=== PATIENT | male | born 1955 ===

== ENCOUNTER → 2024-11-22 | Day surgery (SDC) | payer OTHER ==
[2024-11-20 14:10] LABS: Absolute Basophils 0.1 K/uL (0-0.5); Absolute Eosinophils 0.4 K/uL (0-0.5); Absolute Lymphocytes (CBC) 3.9 K/uL (0.7-4.9); Absolute Monocytes 0.8 K/uL (0.1-1.3); Eosinophils % 4.2 % (0-4.4); Hematocrit 41.6 % (39.6-49.0); Hemoglobin 14.2 g/dL (13.6-17.9); Lymphocytes % 42.3 % (15.3-44.8); MCH 34.1 pg (27.0-35.0); MCHC 34.2 g/dL (32.0-36.0); MCV 99.7 fL (80-100); MPV 9.3 fL (7.6-11.3); Monocytes % 8.3 % (3.3-12.3); Neutrophils % 44.2 % (41.7-73.7); Nucleated Red Blood Cells % 0.1 % (0-0); Platelets 257 thou/uL (152-406); RBC Red Blood Cell Count 4.17 M/uL (4.33-5.43); Red Cell Distribution Width 13.9 % (12.1-15.2)
[~2024-11-22] MED LIST: LIDOCAINE 1% MPF 5 ML VIAL ONE; propofoL 200 MG/20 ML VIAL IV ONE
[2024-11-22] MEDS: Ringers Lactate 1,000 ML IV ONE (07:20)
[2024-11-22] MEDS: OXYMETAZOLINE HCL 0.05% 15ML NAS ONE (07:39)
--- NOTE | 2024-11-22 08:42 | P.OP ---
Date of Service: 11/22/24 Surgeon: Dr. Pina Ramirez Educational Psychology Teacher: None Procedure: Evaluation of sleep disordered breathing by examination of upper airway using an endoscope; CPT: 35966 Preoperative diagnosis: Moderate or severe obstructive sleep apnea with positive airway pressure intolerance. Postoperative diagnosis: Moderate or severe sleep apnea with positive pressure airway intolerance. Anesthesia: IV sedation Estimated blood loss: None Complications: None Brief clinical history: This is a 69-year-old patient with a history of moderate to severe symptomatic obstructive sleep apnea with an AHI of 43 and a minimum oxygenation of 74% with a total of 62 minutes below 90% who is intolerant and unable to achieve benefit with positive pressure therapy. He is frequently a side sleeper which results in difficulty tolerating and continuing CPAP throughout the night patient's compliance report between July 10 and September 17, 2024 demonstrated usage for 90% of the 70 days but greater than 4 hours only 50% of the days. They present today for drug-induced sleep endoscopy to better characterize the location and pattern of obstruction and to predict appropriate medical and/or surgical options moving forward Procedure findings: There was no evidence of complete concentric palatal obstruction and they appear to be a candidate anatomically for hypoglossal nerve stimulation therapy. Description of procedure: The patient was brought to the endoscopy suite and was administered anesthesia via standard drug-induced sleep endoscopy protocol. The patient was administered propofol while under monitoring including oxygen concentration, CO2, blood pressure, and pulse under conditions felt to mimic sleep. The patient was nonresponsive to verbal commands but maintained spontaneous respiration. Patient was noted to have observed apnea and snoring consistent with diagnosis of obstructive sleep apnea. Under these conditions, the flexible endoscope was inserted into both sides of the nose and advanced to the nasopharynx, and oral pharynx with observation of the larynx. The patient's nasal mucosa was mildly edematous and he was noted to have S shaped bilateral septal deviation. The mucosa of the nasopharynx was unremarkable. The patient was noted to have prolonged episodes of apnea. With spontaneous breathing, the patient was noted to have primarily mouth breathing with an open mouth position and collapse of the tongue into the oropharynx. With advancement of the scope into the oral pharynx, visible obstruction with the base of tongue was noted. The patient desaturated to about 81% at which time we administered jaw thrust in order to improve the obstruction. With spontaneous breathing, the patient's oxygen saturations returned to normal on room air. We continue to observe both the oropharynx and nasopharynx throughout the procedure. During portions of the procedure he was noted to have audible snoring with visible flutter of the palate, with anterior posterior collapse with the soft palate lying against the nasal/oral pharyngeal wall. There was no evidence of complete concentric palatal obstruction. There was no evidence of significant lateral movement in the level of the palate. We continue to observe during early portions of emergence to ensure adequate visualization through various levels of sedation. At the conclusion of the exam, the scope was withdrawn. There was no evidence of any injury to the nasal mucosa and no evidence of active epistaxis. The patient was monitored with spontaneous ventilation until the patient's level of alertness increased and they responded to verbal commands and demonstrated active and intact control of their airway. The patient was then transferred to appropriate recovery prior to discharge. In summary, there was no evidence of complete concentric palatal obstruction and they appeared to be a candidate anatomically for hypoglossal nerve stimulation. I was present for and personally performed the entire procedure.
[2024-11-22 09:17] VITALS: O2SAT 100
[2024-11-22 09:18] VITALS: BP 109/65; TEMP 97.8
== END ==
LOC: OR 06:50
PROVIDERS: ATTEND Otolaryngology
PROC: 0CJY8ZZ Inspection of Mouth and Throat, Via Natural or Artificial Opening Endoscopic (ICD-10-PCS; principal; 2024-11-22 08:00)
DX: G47.33 Obstructive sleep apnea (adult) (pediatric) (principal); Z68.26 Body mass index [BMI] 26.0-26.9, adult
CPT/HCPCS: 85025; 80048; 36415; 42975; J2704; J2003; J7120

== ENCOUNTER → 2025-01-03 | Day surgery (SDC) | payer OTHER ==
[2024-12-30 11:36] LABS: Absolute Basophils 0.1 K/uL (0-0.5); Absolute Eosinophils 0.2 K/uL (0-0.5); Absolute Lymphocytes (CBC) 3.5 K/uL (0.7-4.9); Absolute Monocytes 0.7 K/uL (0.1-1.3); Absolute Neutrophil 2.6 K/uL (1.8-8.0); Eosinophils % 2.2 % (0-4.4); Hematocrit 40.7 % (39.6-49.0); Hemoglobin 14.1 g/dL (13.6-17.9); Lymphocytes % 49.5 % (15.3-44.8); MCH 33.8 pg (27.0-35.0); MCHC 34.7 g/dL (32.0-36.0); MCV 97.5 fL (80-100); MPV 9.5 fL (7.6-11.3); Neutrophils % 37.3 % (41.7-73.7); Platelets 278 thou/uL (152-406); RBC Red Blood Cell Count 4.18 M/uL (4.33-5.43); Red Cell Distribution Width 13.3 % (12.1-15.2)
[~2025-01-03] MED LIST changes: +EPHEDRINE SULF 50 MG/ML VIAL ONE; +FENTANYL CITR 100 MCG/2 ML ONE; +GLYCOPYRROLATE 0.2 MG/ML SYR ONE; +KETOROLAC 30 MG/ML INJ ONE; -LIDOCAINE 1% MPF 5 ML VIAL ONE; +LIDOCAINE 2% MPF 5 ML VIAL ONE; +MIDAZOLAM HCL 2 MG/2 ML INJ ONE; +Mastisol Adhesive Liq ONE; +NEOSTIGMINE 1 MG/ML -10 ML VIAL ONE; +NS 0.9% VIAL 20 ML ONE; +ONDANSETRON 4 MG/2 ML VIAL ONE; +ROCURONIUM 50 MG/5 ML VIAL IV ONE; +Ringers Lactate 1,000 ML IV ONE; +dexAMETHasone 10 MG/ML VIAL ONE
[2025-01-03] MEDS: CEFAZOLIN SODIUM 2 GM/VIAL ONE (13:58)
[2025-01-03] MEDS: LIDOCAINE HCL/EPINEPHRINE 20 ML MDV ONE (14:19)
--- NOTE | 2025-01-03 16:40 | P.OP ---
Date of Service: 01/03/25 Surgeon: Dr. Pina Ramirez CPT: 17887 insertion of hypoglossal nerve neurostimulator electrode and generator and breathing sensor electrode Preoperative diagnosis: Obstructive sleep apnea with positive airway pressure intolerance, body mass index 25.7 Postoperative diagnosis: Same Anesthesia: General via endotracheal tube Estimated blood loss: 10 Complications: [None] Intraoperative findings: Good stimulation on program A/default testing down to 0.5mA at which time there was slight rightward deviation of the tongue with relaxation which was slightly more pronounced at 0.3mA. The nerve was slightly cleaned and the cuff was rotated slightly resulting in improvement. Patient had robust forward movement on program B and C at 0.5 and 0.3 mA. Brief clinical history: This is a 69-year-old patient with a history of moderate to severe obstructive sleep apnea and an associated body mass index of 25.7. The patient was intolerant and unable to achieve benefit from positive pressure therapy. The patient has passed the clinical, polysomnographic, and endoscopic screening criteria and presents today for implant Procedure description: The patient was brought to the operating room and placed under general anesthesia via endotracheal intubation. The head of bed was turned 180 degrees. The patient's neck and external anatomy was palpated and examined with planned incisions marked with a surgical pen. Monitoring electrodes were placed within the genioglossus and hypoglossal muscle and connected to the NIM box for intraoperative nerve monitoring. The grounding electrode was placed in the patient's left shoulder. The patient's face, neck, and chest was prepped and draped in a sterile fashion with the head turned to the left for best exposure of the right neck. A modified submandibular incision was made through the skin, approximately 2 cm below the inferior aspect of the mandible. Dissection was carried down through the subcutaneous tissue and platysma. The platysma was divided and additional dissection was carried out for identification of the anterior/inferior border of the submandibular gland. The digastric tendon was identified. 2 silk sutures were placed in the digastric tendon to aid in inferior and anterior retraction. Dissection continued down into the digastric triangle and the posterior border of the mylohyoid muscle was freed and retracted anteriorly. With balanced retraction, the hypoglossal nerve was identified and carefully dissected up towards the floor of the mouth. The superior/posterior branches innervating the hyoglossus muscle were identified visually with anatomic clues and NIM stimulation. Once the anterior/inferior branches of the hypoglossal nerve were isolated, the cuff electrode for the hypoglossal nerve stimulator (C1778; [id number]) was placed distal to these branches innervating the genioglossus, transverse, and vertical muscles. The stimulation lead was anchored to the digastric tendon using the 2 previously placed silk sutures. Slack between the cuff and the anchor was gently tucked deep to the submandibular gland. A second 5 cm incision was made in the right upper chest over the second intercostal space, approximately 3 cm lateral to the sternal margin. Dissection was carried down through the skin and subcutaneous tissue to the fascia of the pectoralis muscle. A suprafascial inferior pocket for the generator was created with blunt dissection and the LigaSure. The pectoralis major fascia was dissected directly over the second intercostal space with subsequent blunt dissection through the muscle body. The pectoralis was retracted to expose the fatty layer just superficial to the external intercostal muscle. The fatty layer was carefully and bluntly dissected to expose the external intercostal muscles. A small fasciotomy through the external intercostals was performed and the respiratory sensing lead (C1778; [id number]) was advanced with the sensor facing the pleura into the interfascial plane between the external and internal intercostals. The sensing lead was anchored with 3-0 silk to the fascia of the external intercostals. Secondary anchoring sutures of 3-0 silk were placed to the pectoralis major fascia, allowing adequate slack between the anchors. The stimulation lead was then tunneled in a subplatysmal plane with blunt dissection under direct visualization and brought out to the subclavicular pocket where both the stimulation lead and respiratory sensing lead were connected to the implantable pulse generator, using the 2 person, 3 handed approach. The implantable pulse generator (C1767; [id number]) was placed in the subclavicular subcutaneous pocket ensuring lead body was deep to the generator and secured wi th air knots to the pectoralis fascia using 2-0 silk suture. Diagnostic evaluation confirmed good placement of the stimulation cuff as demonstrated by activation of the genioglossus, and transverse and vertical muscles resulting in unhindered, stiffened tongue protrusion confirmed visually with additional findings as noted in the findings section. Diagnostic evaluation also confirmed good respiratory sensor placement as demonstrated by sensing waveform with good rise and fall associated with patient respirations. All the wounds were thoroughly irrigated and closed in 2 layers with deep 4-0 V icryl sutures and 4-0 Monocryl subcuticular sutures. Mastisol and Steri-Strips were applied followed by pressure dressings. The patient was awakened, extubated, and transferred to the recovery room in stable condition. I was present for and performed the entire procedure. All sponge and needle counts were confirmed correct by the operating room staff prior to final closure. Postoperative plan: The patient will be discharged home later today in the care of their family and follow-up with Dr. Ramirez in 10 days for wound check and suture removal if required. They will follow-up with the generator mechanic in about 6 weeks for planned activation of the device.
[2025-01-03] MEDS: HYDROMORPHONE HCL 1 MG/ML INJ ONE (17:08)
--- NOTE | 2025-01-03 17:41 | RAD REPORT ---
EXAMINATION: ONE VIEW CHEST XR CLINICAL INDICATION: Male, 69 years old.,S/P INSPIRE TECHNIQUE: Frontal chest projection is submitted. Examination is limited by patient positioning and t echnique. COMPARISON: No prior exam. FINDINGS: Right chest wall battery pack in place. The lungs are well inflated and clear. No pneumothorax or si zable effusion. The heart is normal in size. Mediastinal contours are unremarkable. IMPRESSION: No acute intrathoracic abnormalities.
--- NOTE | 2025-01-03 17:43 | RAD REPORT ---
EXAMINATION: XR Neck Soft Tissue CLINICAL INDICATION: Male, 69 years old. S/P INSPIRE TECHNIQUE: 2 views of the neck were performed. COMPARISON: No prior exam. FINDINGS: Inspire device electrode courses along the right lateral neck, terminating along the floor of mouth. No kinking or discontinuity noted. Some soft tissue gas near the electrode tip as expected. IMPRESSION: Aspect. Appearance of the inspire device electrode.
[2025-01-03 18:12] VITALS: BP 114/72; TEMP 97.4; O2SAT 96
== END ==
LOC: OR 10:37
PROVIDERS: ATTEND Otolaryngology
PROC: 0JH63MZ Insertion of Stimulator Generator into Chest Subcutaneous Tissue and Fascia, Percutaneous Approach (ICD-10-PCS; principal; 2025-01-03 13:58)
DX: G47.33 Obstructive sleep apnea (adult) (pediatric) (principal); Z68.26 Body mass index [BMI] 26.0-26.9, adult; I10 Essential (primary) hypertension
CPT/HCPCS: 85025; 80048; 36415; 71045; 70360; 64582; A4216; J2704; J2710; J2003; J2250; J3010; J1100; J1171; J2405; J7120 ×2